=== PATIENT | male | born 1985 | race Caucasian/White ===

== ENCOUNTER 2018-06-20 21:18 | Emergency (ER) | payer BC, OTHER ==
[2018-06-20 21:40] VITALS: BP 113/71; PULSE 67; RESP 18; TEMP 98.6; O2SAT 98
--- NOTE | 2018-06-20 22:35 | ED PDOC ---
Upper Extremity Pain/Injury Time Seen by Provider: 06/20/18 21:44 Chief Complaint (Nursing): Finger,Hand,&Wrist Chief Complaint (Provider): Right hand swelling and pain History Per: Patient History/Exam Limitations: no limitations Additional Complaint(s): 32 y/o M with no PMH who presents with pain/swelling of Right hand after punching the console of a car 10 days ago [place] He did not seek medical attention there. He states that the hand was very swollen and bruised. He continues to have pain and swelling and feels that he cannot close his hand completely. He has been taking Ibuprofen last dose was 600mg this morning. Admits to mild paresthesias but denies anesthesia. Denies HTN, HL, CAD/AK. Past Medical History Reviewed: Historical Data, Nursing Documentation, Vital Signs Vital Signs: Last Vital Signs Temp 98.6 F 06/20/18 21:32 Pulse 67 06/20/18 21:32 Resp 18 06/20/18 21:32 BP 113/71 06/20/18 21:32 Pulse Ox 98 06/20/18 21:32 - Medical History PMH: No Chronic Diseases - Family History Family History: States: Unknown Family Hx - Home Medications Home Medications: Ambulatory Orders Medication Instructions Recorded RX: Ibuprofen [Motrin Tab] 600 mg PO Q6 PRN 5 Days tab 06/20/18 - Allergies Allergies/Adverse Reactions: Allergies Allergy/AdvReac Type Severity Reaction Status Date / Time No Known Allergies Allergy Verified 11/10/14 21:47 Review of Systems Musculoskeletal: Positive for: Other (hand pain and swelling) Physical Exam - Reviewed Nursing Documentation Reviewed: Yes Vital Signs Reviewed: Yes - Physical Exam Appears: Positive for: Well Extremity: Positive for: Other (Right hand with + edema on medial posterior aspect over 4th and 5th metacarpals. + tenderness on palpation over 4th and 5th metatarsal. no ecchymosis. ) Neurologic/Psych: Positive for: Alert, Oriented - ECG O2 Sat by Pulse Oximetry: 98 Medical Decision Making Medical Decision Making: Right hand x-ray X-ray shows displaced fracture of the 5th metacarpal on the Right. Ulnar guttar splint placed. Pt instructed to f/u with orthopedics as soon as possible and to keep splint in place until then. Avoid wetting splint. Disposition - Clinical Impression Clinical Impression: Boxer's fracture - Patient ED Disposition Is Patient to be Admitted: No - Disposition Referrals: Coleman Canales III, MD [Staff Provider] - Disposition: Routine/Home Disposition Time: 23:40 Condition: STABLE Additional Instructions: Take Ibuprofen for the pain. F/u with orthopedics as soon as possible. Keep splint in place until then. Prescriptions: RX: Ibuprofen [Motrin Tab] 600 mg PO Q6 PRN 5 Days tab PRN Reason: Pain, Moderate (4-7) Instructions: Boxer's Fracture (DC) Forms: [facility] (Armenian) Print Language: NEPALI
--- NOTE | 2018-06-21 08:17 | RAD ---
PROCEDURE: Right Hand Radiographs. HISTORY: pain/swelling after punched wall COMPARISON: None. FINDINGS: BONES: There is impacted boxer's fracture of the distal 5th metacarpal bone with the distal fracture fragment angled in the palmar direction. No dislocation or subluxation appreciated throughout the right hand including 5th metacarpal phalangeal joint. JOINTS: As above. SOFT TISSUES: Normal. OTHER FINDINGS: None. IMPRESSION: Boxer's fracture right 5th metacarpal bone impacted distally as discussed above.
== END 2018-06-20 23:57 | disposition home or self-care (01) ==
LOC: H.ER 21:18
DX: S62.91XA Unspecified fracture of right hand, initial encounter for closed fracture (principal); W22.8XXA Striking against or struck by other objects, initial encounter